=== PATIENT | female | born 1995 | race Two or more races ===

== ENCOUNTER 2024-07-20 17:57 | Emergency (ER) | payer BC, SELFPAY ==
[2024-07-20 18:06] VITALS: BP 121/99; PULSE 112; RESP 22; TEMP 37.2; O2SAT 99
[2024-07-20 18:11] VITALS: BMI 29.1
--- NOTE | 2024-07-20 18:14 | PC.NURSE ---
Patient brought in the ED due to sudden back pain. Patient states she was sitting for 10 hrs due to work. When patient arrived to her mothers house she c/o back spasms and lower back pain 10/10. GCS [address] Nicholson bedside assessing patient at this time.
--- NOTE | 2024-07-20 18:25 | XR_ITS ---
Examination: AP thoracic spine single view TECHNIQUE: AP portable supine thoracic spine single view Date and time: July 20, 20242049 hours INDICATION: Back pain 2 days. FINDINGS: Thoracic dextroscoliosis 8 degrees No thoracic fracture No cortical bone destruction IMPRESSION: No thoracic fracture on this AP view only
--- NOTE | 2024-07-20 18:25 | XR_ITS ---
Examination: AP lumbar spine single view TECHNIQUE: AP lumbar spine single view Date and time: July 20, 2024 204 hours INDICATIONS: Low back pain 2 days FINDINGS: Satisfactory alignment on the AP view No lumbar fracture IMPRESSION: No lumbar fracture
--- NOTE | 2024-07-20 18:25 | XR_ITS ---
Examination: AP cervical spine single view TECHNIQUE: AP portable upright cervical spine single view July 20, 20242048 hours INDICATIONS: Neck pain beginning 2 days ago. FINDINGS: Satisfactory alignment cervical vertebral body on the AP view There is no lateral view for interpretation IMPRESSION: There is no lateral view for interpretation
[2024-07-20] MEDS: DIAZEPAM INJ 5 MG/ML VIAL 2 ML 2 MG IM (18:26)
[2024-07-20] MEDS: KETOROLAC INJ 60 MG/2 ML VIAL 30 MG IM (18:27)
--- NOTE | 2024-07-20 18:27 | PD.EDBACK ---
ED Back Injury Pain RME/HPI General Chief Complaint: Shortness of Breath/Dyspnea Stated Complaint: SHORTNESS OF BREATH Time Seen by Provider: 07/20/24 18:11 Arrival date/time: 07/20/24 17:57 RME / HPI RME / HPI Narrative: The patient is a 29-year-old female with significant past medical history of anxiety presented to ED after developing sudden onset severe back spasm about 20 minutes ago. The patient was just entering her room and when she bent down, she felt of catching sensation over her back and has been hurting since then. Warm bag was placed over her back but that did not help her. She denies any headache, nausea or vomiting, abdominal pain, chest pain, any changes in bowel or bladder habit or leg swelling. She denies any fever or chills. Related Data Previous Rx's ?Medication ?Instructions ?Recorded ibuprofen 400 mg tablet 400 mg PO Q8H PRN pain #14 tabs 07/20/24 tizanidine 4 mg tablet 4 mg PO Q8H PRN muscle spasticity 07/20/24 #20 tabs Allergies Allergy/AdvReac Type Severity Reaction Status Date / Time No Known Drug Allergies Allergy Verified 07/20/24 18:00 Review of Systems Review of Systems Systems Reviewed: All systems reviewed, normal except as documented ED Exam Narrative Physical exam: General: Young, cooperative female no acute distress, Alert and Oriented x 3 HEENT: Moist mucous membranes, oropharynx clear Neck: Supple, No masses, No JVD CVS: S1S2 Regular rate and rhythm, No murmurs, rubs or gallops Lungs: Clear to auscultation with no accessory use, no wheeze no rhonchi Abd: Soft, NT/ND, +BS, no organomegaly Ext: No edema, warm and well perfused Skin: No rash Psych: Seems to be in pain Course Quality Measures none Orders Category Date Time Status XR cervical spine 1V Stat Exams 07/20/24 18:25 Completed XR lumbar spine 1V Stat Exams 07/20/24 18:25 Completed XR thoracic spine 1V Stat Exams 07/20/24 18:25 Completed CBC Stat Lab 07/20/24 18:05 Completed CMP [Comprehensive Metabolic Panel] Stat Lab 07/20/24 18:05 Completed HCG Qualitative,Urine Stat Lab 07/20/24 20:05 Completed Diazepam Inj [Valium Inj] Med 07/20/24 18:17 Discontinued 2 mg IM X1 ONE HYDROmorphone INJ [Dilaudid Inj] Med 07/20/24 18:57 Discontinued 1 mg IVP X1 ONE Ketorolac Inj [Toradol Inj] Med 07/20/24 18:17 Discontinued 30 mg IM X1 ONE Sodium Chloride 0.9% 1000 ml [Ns] 1,000 ml Med 07/20/24 19:57 Discontinued IV 999 mls/hr tiZANidine HCL [Zanaflex] Med 07/20/24 18:17 Discontinued 4 mg PO X1 ONE Vital Signs Vital signs: Vital Signs Temperature 98.9 F 07/20/24 18:06 Pulse Rate 112 H 07/20/24 18:06 Respiratory Rate 22 H 07/20/24 18:06 Blood Pressure 121/99 H 07/20/24 18:06 Pulse Oximetry (%) 99 07/20/24 18:06 Oxygen Delivery Method Room Air 07/20/24 18:06 Back Pain / Injury MDM Narrative MDM Narrative:: The patient is a 29-year-old female with significant past medical history of anxiety presented to ED after developing sudden onset severe back spasm about 20 minutes ago. The patient was just entering her room and when she bent down, she felt of catching sensation over her back and has been hurting since then. Warm bag was placed over her back but that did not help her. She denies any headache, nausea or vomiting, abdominal pain, chest pain, any changes in bowel or bladder habit or leg swelling. She denies any fever or chills. Her initial vitals were BP 121/99, pulse 112, RR 22, temperature 98.9 and saturating 99% on room air. Labs are significant for white count 15.6, likely reactive, sodium 133, potassium 3.6, bicarb, blood sugar 113, calculated osmolality 267, total protein 8.4 and urine hCG negative. X-ray thoracic spine, lumbar spine and cervical spine was negative for any fracture. The patient was given tizanidine 4 mg p.o. x 1, ketorolac 30 Mg IM x 1, diazepam 2 mg IM x 1 for back pain, but it only helped her minimally. She was given 1 mg of IV hydromorphone with improvement in her symptoms. She was also given normal saline bolus 1 L IV x 1. Patient data External records reviewed:: None (No previous records to review) Clinical information provided by:: patient and friend Social determinants that could affect healthcare access:: none Patient has the following chronic illnesses:: See above How is presenting disease/condition affected by chronic disease/condition?: uneffected by Evaluation data The following diagnostics were reviewed and interpreted by me:: lab results and radiology exam(s) Lab and/or radiology exams considered but not ordered:: none Interpretation Summary: see above Medications / Prescriptions Medications or Prescriptions considered but not ordered:: none Medication administrations:: Medication Administration History Discontinued Medications Diazepam (Diazepam Inj 5 Mg/Ml Vial 2 Ml) 2 mg IM X1 ONE Stop: 07/20/24 18:18 Last Admin: 07/20/24 18:26 Dose: 2 mg Documented By: ER Hydromorphone HCl (Hydromorphone Inj 2 Mg/Ml Vial) 1 mg IVP X1 ONE Stop: 07/20/24 18:58 Last Admin: 07/20/24 19:06 Dose: 1 mg Documented By: ER Sodium Chloride (Ns) 1,000 mls @ 999 mls/hr IV .Q1H1M ONE Stop: 07/20/24 20:57 Last Infusion: 07/20/24 21:06 Dose: Infused Documented By: Admin: 07/20/24 20:10 Dose: 999 mls/hr Documented By: DT Ketorolac Tromethamine (Ketorolac Inj 60 Mg/2 Ml Vial) 30 mg IM X1 ONE Stop: 07/20/24 18:18 Last Admin: 07/20/24 18:27 Dose: 30 mg Documented By: ER Tizanidine HCl (Tizanidine Hcl 2 Mg Tablet) 4 mg PO X1 ONE Stop: 07/20/24 18:18 Last Admin: 07/20/24 18:36 Dose: 4 mg Documented By: ER See above Consultations Consultation(s) initiated? (list below): No Diagnosis Differential diagnosis back pain/injury: thoracic back pain, discitis and other (Back muscle spasm) Most likely diagnosis given after review of the tests above:: Back muscle spasm Admission Indicated Admission indicated?: not indicated Admission Request Was there a request for admission?: No Disposition Plan Disposition Plan: Discharge Discharge Attestation Discharge Attestation: The patient and all family members were given an opportunity to ask questions and understood the discharge instructions. Discharge instructions specifically effects, indications for sooner follow up or return to the emergency department, and the expected course of current diagnosis. Patient condition: Stable Discharge Plan Plan Patient Disposition: HOME (Self Care) Prescriptions/Referrals Prescriptions/Med Rec: New tizanidine 4 mg tablet 4 mg PO Q8H PRN (Reason: muscle spasticity) Qty: 20 0RF ibuprofen 400 mg tablet 400 mg PO Q8H PRN (Reason: pain) Qty: 14 0RF Referrals: Ro Ruffin [Primary Care Provider] - In 1 week Problem List Clinical Impression: Back muscle spasm Patient/Caregiver Discharge Instructions Discharge Activity: activity as tolerated Education Materials: Muscle Spasm Additional Instructions: You were diagnosed with back muscle spasm You have been discharged by Dr. Nicholson on following recommendations: Please follow-up with your PCP within 1 week of discharge You have been started on: -Tizanidine 4 mg up to 3 times a day for muscle spasm or pain - Ibuprofen 400 Mg up to 3 times a day for back pain -Recommended to stay hydrated - Recommended to start walking from sitting position or turning or changing your position of body slowly for 1 week. Continue taking all other medicines as prescribed -Recommended to return back to emergency department if your symptoms persists or worsens Print Language: Slovak Stand Alone Forms: Diana Award Info., Patient Portal Info Letter
[2024-07-20] MEDS: tiZANidine HCL 2 MG TABLET 4 MG PO (18:36)
[2024-07-20 18:54] LABS: Basophils # (Auto) 0.1 Thou/mm3 (0.0-0.2); Basophils % (Auto) 0 % (0-2.5); Eosinophils # (Auto) 0.1 Thou/mm3 (0.0-0.5); Eosinophils % (Auto) 1 % (0-10); Hematocrit 42.1 % (36.0-46.0); Immature Granulocytes % (Auto) 0 % (0-0); Immature Granulocytes Auto 0.04 Thou/mm3 (0.00-0.00); Lymphocytes # (Auto) 4.7 Thou/mm3 (1.0-4.8); Lymphocytes % (Auto) 30 % (10-50); Mean Corpuscular HGB Conc 35.6 g/dl (31.0-37.0); Mean Corpuscular Hemoglobin 30.5 pg (25.0-35.0); Mean Corpuscular Volume 86 fL (80-100); Monocytes # (Auto) 0.9 Thou/mm3 (0.0-0.8); Monocytes % (Auto) 6 % (0-12); Neutrophils # (Auto) 9.8 Thou/mm3 (1.8-7.7); Neutrophils % (Auto) 63 % (37-80); Nucleated Red Blood Cell % 0 /100 WBC (0); Platelet Count 346 Thou/mm3 (140-440); RDW Standard Deviation 39.3 fL (36.4-46.3); Red Blood Count 4.92 Miln/mm3 (4.00-5.20); White Blood Count 15.6 Thou/mm3 (3.6-11.0)
[2024-07-20] MEDS: HYDROmorphone INJ 2 MG/ML VIAL 1 MG IVP (19:06)
[2024-07-20 19:12] LABS: Alanine Aminotransferase 23 U/L (10-49); Albumin, Serum 5.2 gm/dL (3.5-5.0); Albumin/Globulin Ratio 1.6 (1.2-2.2); Alkaline Phosphatase 90 U/L (46-116); Anion Gap 12 (7-16); Aspartate Amino Transferase 23 U/L (0-34); BUN/Creatinine Ratio 18 Ratio (12-20); Bilirubin,Total 0.4 mg/dL (0.3-1.2); Blood Urea Nitrogen 14 mg/dL (9-23); Calcium 9.8 mg/dL (8.3-10.6); Calcium (Corrected) 9.8 mg/dL (8.5-10.1); Carbon Dioxide 19.6 mMol/L (20.0-31.0); Chloride 101 mMol/L (98-107); Creatinine (Component) 0.8 mg/dL (0.6-1.3); Estimated Creatinine Clearance 107.1 mL/min (>60); Globulin 3.2 gm/dL (2.3-3.5); Glucose 113 mg/dL (74-106); Osmolality,Calculated 267 (275-295); Potassium 3.6 mMol/L (3.4-5.1); Sodium 133 mMol/L (136-145); Total Protein 8.4 gm/dL (5.7-8.2); eGFR > 60 See Note
[2024-07-20 19:28] VITALS: BP 115/68; PULSE 82; RESP 18; TEMP 37.1; O2SAT 100
[2024-07-20 20:00] VITALS: BP 124/80; PULSE 85; RESP 14; TEMP 37; O2SAT 100
[2024-07-20 20:06] VITALS: TEMP 37
[2024-07-20] MEDS: SODIUM CHLORIDE 0.9% 1000 ML 1,000 ML 999 ML IV (20:10)
[2024-07-20 20:39] LABS: HCG Qualitative,Urine Negative
[2024-07-20 21:00] VITALS: BP 125/85; PULSE 85; RESP 14; TEMP 37; O2SAT 99
[2024-07-20] MEDS: HYDROmorphone INJ 2 MG/ML VIAL 0.5 MG IVP (21:58)
[2024-07-20 22:00] VITALS: BP 119/85; PULSE 80; RESP 12; TEMP 37; O2SAT 100
== END 2024-07-20 22:17 | disposition home or self-care (01) ==
PROVIDERS: Emergency Provider Student in an Organized Health Care Education/Training Program; PCP Nurse Practitioner Family
DX: M62.830 Muscle spasm of back (principal)
CPT/HCPCS: 36415; 72020; 80053; 81025; 85025; 96361; 96372; 96374; 96376; 99284; J1171; J1885; J3360; J7030; A9270